=== PATIENT | male | born 1940 | race Caucasian/White ===

== ENCOUNTER 2021-02-26 15:18 | Emergency (ER) | payer OTHER ==
[~2021-02-26 15:18] MED LIST: ACTOS30 MG PO; AMARYL 2MG TABLE2 MG PO; ASPIR 8181 MG PO; CEFDINIR300 MG PO; ELIQUIS 5 MG TAB5 MG PO; ELIQUIS5 MG PO; HYDROCHLOROTHIA25 MG PO; IPRAT-ALBUT 0.5-3 ML NEB; ISORDIL TAB 3030 MG PO; ISOSORBIDE MONO30 MG PO; JANUMET 50-5001 EACH PO; JANUMET XR 1001 EACH PO; LASIX20 MG PO; NITROSTAT 0.40.4 MG SL; PIOGLITAZONE HC30 MG PO; POTASSIUM CHLO10 MEQ PO; PRINIVIL5 MG PO; SIMVASTATIN20 MG PO; TAMIFLU6 MG/1 ML PO; TENORMIN 25 MG25 MG PO; TOPROL XL25 MG PO; TYLENOL 325MG325 MG PO; VITAMIN B-121000 MCG PO; VITAMIN D31000 UNIT PO; Voltaren Gel 1 % TOP; WARFARIN SODIUM5 MG PO; ZOCOR20 MG PO
[2021-02-26 16:53] LABS: HEMOGLOBIN 12.8 gm/dl (14.0-17.5); RED BLOOD COUNT 3.97 M/UL (4.20-5.50); WHITE BLOOD COUNT 13.9 K/UL (4.5-11.0)
[2021-02-26] MEDS ORDERED: PREDNISONE 20 M20 MG PO (18:40)
[2021-02-26] MEDS ORDERED: AZITHROMYCIN500 MG PO (18:40)
[2021-02-26] MEDS ORDERED: ALBUTEROL1.25 MG/3 INH (18:40)
== END 2021-02-26 18:45 | disposition home or self-care (01) ==
LOC: ER1 15:18
PROVIDERS: Physician Assistant
DX: J44.1 Chronic obstructive pulmonary disease with (acute) exacerbation (principal); I11.9 Hypertensive heart disease without heart failure; E11.9 Type 2 diabetes mellitus without complications; E78.5 Hyperlipidemia, unspecified; Z95.1 Presence of aortocoronary bypass graft; Z20.822 Contact with and (suspected) exposure to COVID-19
CPT/HCPCS: 36600; 71045; 80053; 82550; 82553; 82803; 83874; 83880; 84484; 85025; 93005; 99285; U0002

== ENCOUNTER 2021-04-21 20:48 | Emergency (ER) | payer OTHER ==
[~2021-04-21 20:48] MED LIST changes: +ALBUTEROL1.25 MG/3 INH; +AZITHROMYCIN500 MG PO; +PREDNISONE 20 M20 MG PO
[2021-04-21 22:15] LABS: HEMOGLOBIN 10.5 gm/dl (14.0-17.5); RED BLOOD COUNT 3.44 M/UL (4.20-5.50); WHITE BLOOD COUNT 9.3 K/UL (4.5-11.0)
[2021-04-21 22:56] LABS: BUN/CREATININE RATIO 15 (0-10)
== END 2021-04-22 05:35 | disposition home or self-care (01) ==
LOC: ER1 20:48
PROVIDERS: Emergency Medicine
DX: I62.02 Nontraumatic subacute subdural hemorrhage (principal); I62.01 Nontraumatic acute subdural hemorrhage; I50.9 Heart failure, unspecified; I25.10 Atherosclerotic heart disease of native coronary artery without angina pectoris; Z79.01 Long term (current) use of anticoagulants
CPT/HCPCS: 70450; 71045; 80053; 81001; 82550; 82553; 83874; 83880; 84484; 85025; 85610; 85730; 87086; 93005; 96374; 96375; 99285; C9132; J3430